=== PATIENT | female | born 1955 | race Caucasian/White ===

== ENCOUNTER → 2017-07-03 | Outpatient (CLI) | payer OTHER | END | disposition home or self-care (01) | LOC: EKG 09:18 → RAD 09:18 | DX: Z01.810 Encounter for preprocedural cardiovascular examination (principal); C50.812 Malignant neoplasm of overlapping sites of left female breast | CPT/HCPCS: 93005 ==

== ENCOUNTER 2017-07-21 06:51 | Day surgery (SDC) | payer OTHER ==
[~2017-07-21] VITALS: Ht 162.6 cm; Wt 124.8 kg
[~2017-07-21 06:51] MED LIST: ASPIR 8181 M1 PO; CALCIUM PO; CYMBALTA20 MG PO; GLUCOPHAGE500 MG PO; LIPITOR10 MG PO; MAGNESIUM PO; OMEPRAZOLE40 M1 PO; SYNTHROID100 MCG PO; ULTRAM50 MG PO; VITAMIN D22000 UNIT PO; ZESTRIL40 MG PO
[2017-07-21] MEDS ORDERED: TYLENOL EXTRA500 MG PO (07:39)
[2017-07-21 07:40] VITALS: BP 143/70
[2017-07-21] MEDS ORDERED: HYDROCODON-ACE1 EAC7 PO (14:35)
[2017-07-21 16:15] VITALS: BP 134/65
[2017-07-21 17:15] VITALS: BP 146/72
== END 2017-07-21 17:30 | disposition home or self-care (01) ==
LOC: SDC 06:51 → NUC 06:51 → SDC 09:00 → NUC 09:00 → SDC 17:30
PROVIDERS: Surgery
PROC: 07B60ZX Excision of Left Axillary Lymphatic, Open Approach, Diagnostic (ICD-10-PCS; principal; 2017-07-21)
PROC: 0HBU0ZZ Excision of Left Breast, Open Approach (ICD-10-PCS; principal; 2017-07-21)
DX: C50.812 Malignant neoplasm of overlapping sites of left female breast (principal); Z17.0 Estrogen receptor positive status [ER+]; K21.9 Gastro-esophageal reflux disease without esophagitis; E03.9 Hypothyroidism, unspecified; I10 Essential (primary) hypertension; E11.9 Type 2 diabetes mellitus without complications; Z79.82 Long term (current) use of aspirin; Z87.891 Personal history of nicotine dependence; Z79.84 Long term (current) use of oral hypoglycemic drugs
CPT/HCPCS: 78195; 78999; 82948; 88305; 88307; A9541; J0330; J0690; J1100; J1170; J2405; J3010; Q0175; S0020